=== PATIENT | female | born 1965 | race American Indian/Alaskan Native ===

== ENCOUNTER 2017-06-02 04:30 | Emergency (ER) | payer MEDICARE ==
[2017-06-02 06:44] VITALS: BP 152/93
[2017-06-02 07:35] LABS: Basophils # (Auto) 0.1 K/mm3 (0.0-0.1); Basophils % (Auto) 0.6 % (0.0-1.8); Eosinophils # (Auto) 0.2 K/mm3 (0.0-0.4); Eosinophils % (Auto) 1.8 % (0.0-4.3); Hematocrit 37.4 % (30.3-42.9); Hemoglobin 12.1 gm/dl (10.1-14.3); Lymphocytes # (Auto) 2.6 K/mm3 (1.2-5.4); Lymphocytes % (Auto) 25.5 % (13.4-35.0); Mean Corpuscular HGB Conc 32 % (30-34); Mean Corpuscular Hemoglobin 33 pg (28-32); Mean Corpuscular Volume 102 fl (79-97); Monocytes # (Auto) 0.6 K/mm3 (0.0-0.8); Monocytes % (Auto) 5.6 % (0.0-7.3); Platelet Count 269 K/mm3 (140-440); Red Blood Count 3.65 M/mm3 (3.65-5.03); Red Cell Distribution Width 13.9 % (13.2-15.2)
[2017-06-02 07:41] LABS: Albumin 4.3 g/dL (3.9-5); BUN/Creatinine Ratio 8; Blood Urea Nitrogen 7 mg/dL (7-17); Calcium 9.3 mg/dL (8.4-10.2); Hemolysis Index 8
[2017-06-02 07:45] LABS: Alanine Aminotransferase < 5 units/L (7-56)
[2017-06-02 08:36] LABS: Color,Urine Yellow (Yellow)
[2017-06-02 08:37] LABS: Bacteria,Urine 1+ /HPF (Negative); Bilirubin,Urine NEG (Negative); Blood,Urine LG (Negative); Mucus,Urine FEW /HPF; Nitrite,Urine NEG (Negative); Protein,Urine <15 mg/dL mg/dL (Negative); Urobilinogen,Urine < 2.0 mg/dL (<2.0)
== END 2017-06-02 07:29 | disposition left against medical advice (07) ==
LOC: ED 04:30
DX: N93.9 Abnormal uterine and vaginal bleeding, unspecified (principal); R21 Rash and other nonspecific skin eruption; Z53.21 Procedure and treatment not carried out due to patient leaving prior to being seen by health care provider
CPT/HCPCS: 36415; 80053; 81001; 84702; 85025; 86850; 86900; 86901

== ENCOUNTER 2020-12-30 21:17 | Emergency (ER) | payer MEDICARE ==
[2020-12-31 00:29] LABS: Basophils % (Auto) 0.4 % (0.0-1.8); Eosinophils # (Auto) 0.1 K/mm3 (0.0-0.4); Eosinophils % (Auto) 0.6 % (0.0-4.3); Hematocrit 37.7 % (30.3-42.9); Lymphocytes # (Auto) 3.2 K/mm3 (1.2-5.4); Lymphocytes % (Auto) 28.7 % (13.4-35.0); Mean Corpuscular HGB Conc 35 % (30-34); Mean Corpuscular Volume 110 fl (79-97); Monocytes # (Auto) 0.8 K/mm3 (0.0-0.8); Monocytes % (Auto) 6.7 % (0.0-7.3); Platelet Count 258 K/mm3 (140-440); Red Blood Count 3.44 M/mm3 (3.65-5.03); Red Cell Distribution Width 14.8 % (13.2-15.2)
[2020-12-31 00:35] LABS: Albumin 4.5 g/dL (3.9-5); BUN/Creatinine Ratio 7; Blood Urea Nitrogen 6 mg/dL (7-17); Calcium 9.5 mg/dL (8.4-10.2); Hemolysis Index 7
[2020-12-31 00:36] LABS: Alanine Aminotransferase < 5 units/L (7-56)
[2020-12-31 04:13] LABS: Bacteria,Urine 2+ /HPF (Negative); Bilirubin,Urine NEG (Negative); Blood,Urine SM (Negative); Color,Urine Amber (Yellow); Hyaline Casts,Urine 2 /LPF; Mucus,Urine 1+ /HPF
--- NOTE | 2020-12-31 07:59 | Emergency Department Report ---
ED Abdominal Pain HPI - General Chief Complaint: Abdominal Pain Stated Complaint: WEAKNESS Time Seen by Provider: 12/31/20 07:42 Source: patient Mode of arrival: Ambulatory Limitations: No Limitations - History of Present Illness Initial Comments: 55-year-old female who denies any significant past medical history presents to the ER today with complaints of lower abdominal pain. Patient states that she has been having this abdominal pain off and on for the past 1 month. She states that she went to [facility] when her symptoms first started, and she was diagnosed with a UTI but she does not feel it was related to her UTI because she still continues to have symptoms. She states that in the past 2-1/2 weeks she has been having associated intermittent nausea, diarrhea and she also been feeling dizzy and lightheaded especially when the pain flares up and last week Wednesday she had a near syncopal episode but did not go to the ER nor her PCP to get it checked out. She denies any syncopal episodes. She states that she is concerned that her symptoms may be related to the mold in her apartment. She reports no chest pain, shortness of breath, mucus in her stools, hematochezia or melena. She denies any fever or chills. She denies any UTI symptoms. She denies any abdominal surgeries. MD Complaint: abdominal pain, other (lightheaded, dizzy) -: month(s) (1) - Related Data Previous Rx's Medication Instructions Recorded Last Taken Type HYDROcodone/APAP 5-325 [[place] 1 - 2 each PO Q6HR PRN #14 tablet 11/05/14 Unknown Rx 5/325] Promethazine [Phenergan] 25 mg PO Q6H PRN #20 tablet 11/05/14 Unknown Rx Promethazine [Phenergan] 25 mg [place] Q6HR PRN #10 supp.rect 11/05/14 Unknown Rx Fluconazole [Diflucan TAB] 200 mg PO QDAY #1 tablet 12/31/20 Unknown Rx Hyoscyamine Subl [Levsin Sl 0.125 0.125 mg SL Q6HR PRN #12 tab 12/31/20 Unknown Rx TAB] Ondansetron [Zofran Odt] 4 mg PO Q8HR #12 tab.rapdis 12/31/20 Unknown Rx Allergies Allergy/AdvReac Type Severity Reaction Status Date / Time No Known Allergies Allergy Verified 07/11/14 13:10 ED Review of Systems ROS: Stated complaint: WEAKNESS Other details as noted in HPI Comment: All other systems reviewed and negative Constitutional: denies: chills, fever ENT: denies: ear pain, throat pain Respiratory: denies: cough, shortness of breath, SOB with exertion, SOB at rest, wheezing Cardiovascular: denies: chest pain, palpitations, dyspnea on exertion, edema, syncope, paroxysmal nocturnal dyspnea Gastrointestinal: abdominal pain, nausea, diarrhea. denies: vomiting, constipation, hematemesis, melena, hematochezia Genitourinary: denies: urgency, dysuria, frequency, hematuria, discharge, abnormal menses, dyspareunia Musculoskeletal: denies: back pain, joint swelling, arthralgia, myalgia Skin: denies: rash, lesions, change in color, change in hair/nails, pruritus Neurological: denies: headache, weakness, numbness, paresthesias, confusion, abn ormal gait, vertigo Psychiatric: denies: anxiety, depression, auditory hallucinations, visual hallucinations, homicidal thoughts, suicidal thoughts Hematological/Lymphatic: denies: easy bleeding, easy bruising, swollen glands ED Past Medical Hx - Past Medical History Previous Medical History?: Yes Additional medical history: Rectal surgery for incontinence - Surgical History Past Surgical History?: Yes Additional Surgical History: Rectal for incontinence, cyst removed from left side - Social History Smoking Status: Never Smoker Substance Use Type: None - Medications Home Medications: Home Medications Medication Instructions Recorded Confirmed Last Taken Type HYDROcodone/APAP 5-325 [[place] 1 - 2 each PO Q6HR PRN #14 tablet 11/05/14 Unknown Rx 5/325] Promethazine [Phenergan] 25 mg PO Q6H PRN #20 tablet 11/05/14 Unknown Rx Promethazine [Phenergan] 25 mg [place] Q6HR PRN #10 supp.rect 11/05/14 Unknown Rx Fluconazole [Diflucan TAB] 200 mg PO QDAY #1 tablet 12/31/20 Unknown Rx Hyoscyamine Subl [Levsin Sl 0.125 0.125 mg SL Q6HR PRN #12 tab 12/31/20 Unknown Rx TAB] Ondansetron [Zofran Odt] 4 mg PO Q8HR #12 tab.rapdis 12/31/20 Unknown Rx ED Physical Exam - General Limitations: No Limitations General appearance: alert, in no apparent distress - Head Head exam: Present: atraumatic, normocephalic, normal inspection - Eye Eye exam: Present: normal appearance, PERRL, EOMI Pupils: Present: normal accommodation - ENT ENT exam: Present: normal exam, mucous membranes moist - Neck Neck exam: Present: normal inspection, full ROM - Respiratory Respiratory exam: Present: normal lung sounds bilaterally. Absent: respiratory distress, wheezes, rales, rhonchi - Cardiovascular Cardiovascular Exam: Present: regular rate, normal rhythm, normal heart sounds - GI/Abdominal GI/Abdominal exam: Present: soft, tenderness (mild suprapubic ttp ). Absent: distended, guarding, rebound - Neurological Exam Neurological exam: Present: alert, oriented X3, CN II-XII intact, normal gait - Psychiatric Psychiatric exam: Present: normal affect, normal mood - Skin Skin exam: Present: intact ED Course Vital Signs 12/30/20 12/31/20 23:41 11:00 Temperature 97.9 F 97.9 F Pulse Rate 62 97 H Respiratory 18 16 Rate Blood Pressure 148/84 Blood Pressure 113/81 [Right] O2 Sat by Pulse 94 99 Oximetry ED Medical Decision Making - Lab Data Result diagrams: 12/30/20 23:53 12/30/20 23:53 - EKG Data EKG shows normal: sinus rhythm Rate: normal (66) - EKG Data Interpretation: normal EKG - Radiology Data Radiology results: report reviewed - Medical Decision Making All labs reviewed -- CBC/CMP unremarkable. TRop negative. Lipase NL. UA appears more contaminated than true UTI, +yeast in urine. CXR shows nothing acute and Abd and pelvis CT with IV contrast shows mild colitis but otherwise no other acute abnormalities. 1116: Patient currently resting comfortably and is not in any acute pain or respiratory distress. She is currently receiving IV fluids and reports feeling much better. She is not toxic or ill-appearing. She is neurologically intact. Repeat VS are stable After discussing with Dr Wood, no indication for antibiotics especially given that patient is afebrile and no significant leukocytosis; patient will be discharged home with medication to help her abdominal pain and nausea but recommend that she follows up closely with GI for further evaluation including a colonoscopy. Discussed all results, suspected diagnosis and treatment plan with patient. She understands that she will need to follow-up with GI. Patient was stable at time of discharge. Critical care attestation.: If time is entered above; I have spent that time in minutes in the direct care of this critically ill patient, excluding procedure time. ED Disposition Clinical Impression: Colitis, Yeast vaginitis Disposition: 01 HOME / SELF CARE / HOMELESS Is pt being admited?: No Does the pt Need Aspirin: No Condition: Stable Instructions: Vaginal Yeast Infection, Adult, Colitis, Abdominal Pain (ED) Additional Instructions: I recommend that you drink lots of fluids. Take the Zofran as prescribed. Take the Levsin as prescribed. You can also take a probiotic daily from [id number]. Most importantly it is important that you follow-up with GI for an endoscopy and colonoscopy. Return to the ER if your symptoms changes or worsens in any way. Prescriptions: Fluconazole [Diflucan TAB] 200 mg PO QDAY #1 tablet Hyoscyamine Subl [Levsin Sl 0.125 TAB] 0.125 mg SL Q6HR PRN #12 tab PRN Reason: abdominal cramps Ondansetron [Zofran Odt] 4 mg PO Q8HR #12 tab.yesica Referrals: [facility] [Provider Group] - 3-5 Days FRANSICO BOND MD [Staff Physician] - 3-5 Days Time of Disposition: 11:08
[2020-12-31] MEDS ORDERED: SODIUM CHLORIDE 0.9% 1000 ML 1,000 ML IV ONE (08:02)
[2020-12-31] MEDS ORDERED: ONDANSETRON 4 MG/2 ML INJ IV ONE (08:16)
--- NOTE | 2020-12-31 08:43 | XRay Report ---
CHEST 2 VIEWS INDICATION: dizzy, lightheaded. COMPARISON: None FINDINGS: Support devices: None. Heart: Within normal limits. Lungs/pleura: No acute air space or interstitial disease. No pneumothorax. Additional findings: None. IMPRESSION: Unremarkable chest films. Signer Name: Rolly Pena Jr, MD Signed: 12/31/2020 8:30 AM Workstation Name: [id number]
--- NOTE | 2020-12-31 10:52 | Cat Scan Report ---
CT abdomen pelvis w con INDICATION / CLINICAL INFORMATION: Lower abd pain OMNII 300 100ML. TECHNIQUE: Axial CT images were obtained through the abdomen and pelvis after IV contrast. All CT sc ans at this location are performed using CT dose reduction for ALARA by means of automated exposure c ontrol. COMPARISON: 11/05/2014 FINDINGS: LOWER CHEST: No significant abnormality LIVER: No significant abnormality GALLBLADDER/BILIARY TREE: Cholecystectomy. PANCREAS: No significant abnormality SPLEEN: No significant abnormality ADRENALS: No significant abnormality KIDNEYS / URETER: No significant abnormality URINARY BLADDER: No significant abnormality REPRODUCTIVE ORGANS: No significant abnormality STOMACH / BOWEL: Stomach and small bowel are normal in caliber. Mild mural thickening and mild inflam matory changes of the ascending colon may reflect mild colitis. Appendix is normal. LYMPH NODES: No significant adenopathy. VASCULATURE: Moderate atherosclerotic calcification without acute abnormality. OTHER: No free air, free fluid, or focal fluid collection is identified. SKELETAL SYSTEM: No acute osseous findings. IMPRESSION: 1. Mild mural thickening and inflammatory changes of the ascending colon may reflect mild infectious or inflammatory colitis. 2. Otherwise, no significant abnormality of the abdomen or pelvis. Signer Name: Josef Maurer MD Signed: 12/31/2020 10:48 AM Workstation Name: [id number]
[2020-12-31 11:01] VITALS: BP 113/81
[2020-12-31] MEDS ORDERED: FLUCONAZOLE 100 MG TAB PO ONE (11:10)
[2020-12-31] MEDS ORDERED: FLUCONAZOLE 200 MG TAB PO ONE (12:00)
--- NOTE | 2021-01-01 10:38 | Electrocardiograph Report ---
[facility] Test Date: 2020-12-31 Test Time: 08:11:24 Pat Name: CASSIE BRYSON Department: Room: Gender: F [employer]: : 1965 Requested By: RAJ VELASCO Order Number: [id number] Reading MD: Magdiel Maher Measurements Intervals [place] Rate: 66 P: 68 LA: 167 QRS: 50 QRSD: 79 T: 68 QT: 432 QTc: 454 Interpretive Statements Sinus rhythm Nonspecific ST changes noted. No previous ECG available for comparison Electronically Signed On 01-01-2021 10:38:04 EDT by Magdiel Maher
== END 2020-12-31 13:47 | disposition home or self-care (01) ==
LOC: ED 21:17
DX: K52.9 Noninfective gastroenteritis and colitis, unspecified (principal); B37.3 Candidiasis of vulva and vagina; Z79.899 Other long term (current) drug therapy; Z98.890 Other specified postprocedural states
CPT/HCPCS: 36415; 71046; 74177; 80053; 81001; 83690; 84484; 85025; 87086; 93005; 96361; 96374; 99285; J2405; J7030; Q9967